=== PATIENT | male | born 1950 | race Caucasian/White ===

== ENCOUNTER 2016-11-14 09:36 | Emergency (ER) | payer MEDICARE ==
--- NOTE | 2016-11-14 11:45 | ED CLINICAL REPORT ---
Clinical Report - Physicians/Mid Levels [facility] [address] [place] [place] [address] 11/14/2016 9:40 Patient: GRACE DE PAZ Time Seen: 0945. Arrived- By private vehicle. Historian- patient. HISTORY OF PRESENT ILLNESS Chief Complaint: Injury to right knee. The injury happened today. Occurred at home. Fell. Patient is experiencing moderate pain. Patient denies injury to the head or neck. No other injury. ("tripped up" by dog. reports falling directly on to right knee. ambulatory after fall.). REVIEW OF SYSTEMS The patient complains of pain on weight bearing. No weakness or skin laceration. All systems otherwise negative, except as recorded above. PAST HISTORY See nurses notes. SOCIAL HISTORY Former smoker. No alcohol use or drug use. No recent travel. Is a local resident. ADDITIONAL NOTES The nursing notes have been reviewed. PHYSICAL EXAM Vital Signs: 11/14/2016 10:10 BP: 146/52. HR: 74. RR: 16. O2 saturation: 97%. Temp: 98.8 F. Pain level now: 6/10. Blood pressure normal. Oxygen saturation normal. Appearance: Alert. Oriented X3. No acute distress. Head: Head atraumatic. Neck: Normal inspection. Neck supple. C-spine non-tender. No vertebral tenderness. CVS: Normal heart rate and rhythm. Heart sounds normal. Pulses normal. Respiratory: No respiratory distress. Breath sounds normal. Chest nontender. Abdomen: No visible injury. Soft and nontender. Bowel sounds normal. Back: Normal inspection. No tenderness. ROM normal. Skin: Skin intact. Skin warm and dry. Normal skin color. Normal skin turgor. Extremities: (right knee is ligamentously stable. no overlying skin changes. no crepitus. no madalyn abnormality. no obvious joint effusion. compartments are soft. neurovasc intact. no pain at the hip with movement of the lower extremity.). Extremities otherwise negative. Neuro, Vascular and Tendons: Vascular status intact. Sensation intact. Motor intact. Tendon function intact. LABS, X-RAYS, AND EKG X-Rays: Right knee negative. PROGRESS AND PROCEDURES Course of Care: THe patient is a pleasant 66 yo male with no pertinent past medical history presenting for fall. Mechanical in nature. no neurovasc compromise on exam. Will evaluate with radiographs. discussed limitations of evaluation here in the ED and when to seek additional help if radiographs do no show any acute findings. work up shows negative right knee. continues to be neurovasc intact. discussed with patient work up in the ed, diagnosis, home care, follow up, and return precautions. all questions answered. Patient expressed understanding of these instructions and was agreeable to them. CLINICAL IMPRESSION 11/14/2016 10:10 BP: 146/52. HR: 74. RR: 16. O2 saturation: 97%. Temp: 98.8 F. Pain level now: 12/18. Hypertensive. Oxygen saturation normal. Essential hypertension. Single contusion to the right knee. INSTRUCTIONS Warnings: GENERAL WARNINGS: Return or contact your physician immediately if your condition worsens or changes unexpectedly, if not improving as expected, or if other problems arise. Specifically return if pain, vomiting, bleeding, breathing difficulty or fever. Your Current Medications: CONTINUE TAKING THE FOLLOWING MEDICATIONS: Aspirin Oral : 81 mg daily. Calcium Citrate Oral : 500mg 2 x daily. Fish Oil Oral : Capsule 1000 mg, 1 capsule 2 x daily. Flaxseed (Linseed) Oral : Capsule 1300 mg, 1 capsule 2x a day. Gabapentin Oral : 100 mg daily. Gemfibrozil Oral : 600 mg 2x a day. Glucosamine Oral : 1500mg 2 x daily. GlyBURIDE Oral : 5 mg daily. Lisinopril Oral : 20 mg daily. MetFORMIN HCl Oral : 500 mg 2x a day. TERAZOSIN HCl Oral : Capsule 5 mg, 1 capsule daily. Prescription Medications: Motrin 600 mg tablets: take 1 tablet orally every 6 hours. Dispense thirty (30). No refill. Substitution is permissible. Follow-up: Return to the emergency department as needed. Follow up with your doctor in one week. Reason for referral: recheck today's concerns. Screening today revealed the patient's blood pressure to be in the normal range. Blood pressure screening was not performed during this visit because the patient has an active diagnosis of hypertension. The patient should follow up with a primary care provider for blood pressure management. Understanding of the discharge instructions verbalized by patient. (Electronically signed by Coleman Doan Dr. 11/16/2016 11:45)
--- NOTE | 2016-11-14 11:45 | ED ORDER SUMMARY ---
..... Patient: GRACE DE PAZ OrderSheet [facility] VisitID: [id number] [address] [place] [address] 66y, M Registration Date/Time: 11/14/2016 ORDER SHEET Weight: 134.7 kg (stated) Allergies: No Known Drug Allergy GENERAL ORDERS: Knee 4V Right Urgent (09:11/14/2016 James Brown) (Ack 9:53 TBergley) (10:33 TBergley) Ice (09:51 11/14/2016 James Brown) (Ack 9:53 TBergley) (9:57 TBergley) Crutches (11:45 11/14/2016 James Brown) (11:56 OHernandez) MEDICATION ORDERS: IV FLUIDS: ORDER SHEET NOTES: [Electronically signed by Coleman Doan Dr. (11:45 11/16/2016)] [Electronically signed by Neville Anthony R.N. (18:11/16/2016)] [Electronically locked/signed by Neville Anthony R.N. (18:11/16/2016)]
--- NOTE | 2016-11-14 11:45 | ED NURSING NOTES ---
Clinical Report - Nurses [facility] [address] [place] [address] 11/14/2016 9:40 [id number] Triage time 09:50 Nov 14 2016. Acuity: LEVEL 3. Chief Complaint: INJURY TO RIGHT KNEE. Alert. SEPSIS SCREEN: Sepsis Screen. Negative (no infection suspected/documented). PAUL COMA SCORE: [place] Coma Scale: 15- eyes open spontaneously (4); best verbal response- oriented x 4 (5); best motor response- obeys commands (6). --10:09 Neville Anthony R.N. 10:10 11/14/16. BP: 146/52. HR: 74. RR: 16. O2 saturation: 97% on room air. Temp: 98.8 F. Pain level now: 12/18. Additional comments: (R) Knee. --10:12 Neville Anthony R.N. Weight: 134.7 kg stated. Height/Length: 72 inches. BMI: 40.3. --09:51 Neville Anthony R.N. Medications Gemfibrozil Oral 600 mg, 2x a day. GlyBURIDE Oral 5 mg, daily. MetFORMIN HCl Oral 500 mg, 2x a day. --09:56 Neville Anthony R.N. Aspirin Oral 81 mg, daily. Fish Oil Oral (Capsule 1000 mg) 1 capsule, 2 x daily. Flaxseed (Linseed) Oral (Capsule 1300 mg) 1 capsule, 2x a day. Gabapentin Oral 100 mg, daily. Lisinopril Oral 20 mg, daily. TERAZOSIN HCl Oral (Capsule 5 mg) 1 capsule, daily. --09:58 Neville Anthony R.N. Calcium Citrate Oral 500mg, 2 x daily. Glucosamine Oral 1500mg, 2 x daily. --09:59 Neville Anthony R.N. Allergies No Known Drug Allergy. --09:54 Neville Anthony R.N. History Arrived by private vehicle. Historian: patient. Accompanied by spouse. [place] ( (R) Knee pain when his dog hit the back of his legs and pt went foward.). This occurred (about 1 1/2 ago). Occurred at a park. Mechanism of injury: sustained a twisting injury and fell. He has had trouble walking. Treatment ACO COORDINATOR: None. PAST MEDICAL HX: Tetanus status: up-to-date. Immunizations: up-to-date. SOCIAL HX: Former smoker, end date 1986. No alcohol use or drug use. No infectious disease exposure. ABUSE ASSESSMENT: No report of abuse. FALL RISK ASSESSMENT: Fall risk assessment completed. No fall risk identified. NUTRITIONAL RISK ASSESSMENT: The nutritional risk assessment revealed no deficiencies. FUNCTIONAL ASSESSMENT: Functional assessment: no impairments noted. LEARNING NEEDS ASSESSMENT: The learning needs assessment revealed no barriers. SKIN INTEGRITY ASSESSMENT: Skin integrity risk assessment completed. No skin integrity risk identified. --10:09 Neville Anthony R.N. PROBLEMS: Coronary Artery Disease. Hypertension. Diabetes Mellitus. --10:07 Neville Anthony R.N. Sleep Apnea. --10:09 Neville Anthony R.N. Occasional PVC's. --10:42 Neville Anthony R.N. ADDITIONAL SURGERIES: Appendectomy. Ear. Elbow. Septoplasty. --10:07 Neville Anthony R.N. Interventions ID band on patient. To treatment room. --10:09 Neville Anthony R.N. PHYSICAL ASSESSMENT Ambulatory to room. GENERAL / NEURO / PSYCH: Oriented X 4. Appears in pain. EXTREMITIES: Limited ROM present in the right knee. Capillary refill is less than 2 seconds in the extremities. Extremity pulses are within normal limits. Neuro-vascular status intact to the extremity. Right knee: tenderness. Limited ROM (diminished flexion and extension). SKIN: Skin intact. Skin is warm and dry. --10:13 Neville Anthony R.N. NURSING PROGRESS NOTES Patient gowned. Reassurance given. Patient identifiers checked. Call light placed in reach. Side rails up x 1. Bed placed in lowest position. Brakes of bed on. Patient ready for evaluation- chart flagged and ED physician notified. --10:13 Neville Anthony R.N. Cold pack applied ((R) Knee). --10:15 Gabrielle, Neville, R.N. <<STRICKEN ENTRY-- 10:33 11/14/16. Patient transported to radiology by stretcher with tech. (10:20 Nov 14 2016). --10:33 Neville Anthony R.N. --END STRIKE>> Correction --10:34 Neville Anthony R.N. 10:20. Patient transported to radiology by stretcher with tech. --10:35 Neville Anthony R.N. 10:33 11/14/16. Patient returned from radiology by stretcher with tech. --10:35 Neville Anthony R.N. 11:54 11/14/16. Patient fit with new crutches. --11:54 Elma Yi 11:54. Crutch training performed by tech; the patient demonstrated proper use (Pt stated crutches felt comfortable. No discomfort was stated.). --15:33 Elma Yi. DISPOSITION / DISCHARGE 11:45 11/14/16. BP: 159/58. HR: 79. RR: 16. O2 saturation: 97% on room air. Temp: 97.9 F (oral). Pain level now: 11/17. --12:06 Neville Anthony R.N. Departure time: 1150. --12:07 Neville Anthony R.N. 11:50. Condition at departure: improved. No learning barriers present. Discharge instructions provided and reviewed with the patient and spouse. Reviewed medication(s) precautions and dosing information (prescription given to spouse). Reviewed referral to family practice for followup. Patient and spouse verbalized understanding. Written instructions provided in [place]. The patient was discharged by the physician. He was discharged home and accompanied by spouse. He left the Emergency Department ambulatory on crutches and via private vehicle. Spouse driving. FALL RISK ASSESSMENT: Fall risk assessment completed. No fall risk identified. --12:14 Neville Anthony R.N. Locked/Released at 11/16/2016 18:24 by Neville Anthony R.N.
--- NOTE | 2016-11-14 11:45 | ED NURSING NOTES ---
Clinical Report - Nurses [facility] [address] [place] [place] [address] 11/14/2016 9:40 [id number] Triage time 09:50 Nov 14 2016. Acuity: LEVEL 3. Chief Complaint: INJURY TO RIGHT KNEE. Alert. SEPSIS SCREEN: Sepsis Screen. Negative (no infection suspected/documented). PAUL COMA SCORE: Geraldine Coma Scale: 15- eyes open spontaneously (4); best verbal response- oriented x 4 (5); best motor response- obeys commands (6). --10:09 Neville Anthony R.N. 10:10 11/14/16. BP: 146/52. HR: 74. RR: 16. O2 saturation: 97% on room air. Temp: 98.8 F. Pain level now: 12/18. Additional comments: (R) Knee. --10:12 Neville Anthony R.N. Weight: 134.7 kg stated. Height/Length: 72 inches. BMI: 40.3. --09:51 Neville Anthony R.N. Medications Gemfibrozil Oral 600 mg, 2x a day. GlyBURIDE Oral 5 mg, daily. MetFORMIN HCl Oral 500 mg, 2x a day. --09:56 Neville Anthony R.N. Aspirin Oral 81 mg, daily. Fish Oil Oral (Capsule 1000 mg) 1 capsule, 2 x daily. Flaxseed (Linseed) Oral (Capsule 1300 mg) 1 capsule, 2x a day. Gabapentin Oral 100 mg, daily. Lisinopril Oral 20 mg, daily. TERAZOSIN HCl Oral (Capsule 5 mg) 1 capsule, daily. --09:58 Neville Anthony R.N. Calcium Citrate Oral 500mg, 2 x daily. Glucosamine Oral 1500mg, 2 x daily. --09:59 Neville Anthony R.N. Allergies No Known Drug Allergy. --09:54 Neville Anthony R.N. History Arrived by private vehicle. Historian: patient. Accompanied by spouse. [place] ( (R) Knee pain when his dog hit the back of his legs and pt went foward.). This occurred (about 1 1/2 ago). Occurred at a park. Mechanism of injury: sustained a twisting injury and fell. He has had trouble walking. Treatment WRAP CHECKER: None. PAST MEDICAL HX: Tetanus status: up-to-date. Immunizations: up-to-date. SOCIAL HX: Former smoker, end date 1986. No alcohol use or drug use. No infectious disease exposure. ABUSE ASSESSMENT: No report of abuse. FALL RISK ASSESSMENT: Fall risk assessment completed. No fall risk identified. NUTRITIONAL RISK ASSESSMENT: The nutritional risk assessment revealed no deficiencies. FUNCTIONAL ASSESSMENT: Functional assessment: no impairments noted. LEARNING NEEDS ASSESSMENT: The learning needs assessment revealed no barriers. SKIN INTEGRITY ASSESSMENT: Skin integrity risk assessment completed. No skin integrity risk identified. --10:09 Neville Anthony R.N. PROBLEMS: Coronary Artery Disease. Hypertension. Diabetes Mellitus. --10:07 Neville Anthony R.N. Sleep Apnea. --10:09 Neville Anthony R.N. Occasional PVC's. --10:42 Neville Anthony R.N. ADDITIONAL SURGERIES: Appendectomy. Ear. Elbow. Septoplasty. --10:07 Neville Anthony R.N. Interventions ID band on patient. To treatment room. --10:09 Neville Anthony R.N. PHYSICAL ASSESSMENT Ambulatory to room. GENERAL / NEURO / PSYCH: Oriented X 4. Appears in pain. EXTREMITIES: Limited ROM present in the right knee. Capillary refill is less than 2 seconds in the extremities. Extremity pulses are within normal limits. Neuro-vascular status intact to the extremity. Right knee: tenderness. Limited ROM (diminished flexion and extension). SKIN: Skin intact. Skin is warm and dry. --10:13 Neville Anthony R.N. NURSING PROGRESS NOTES Patient gowned. Reassurance given. Patient identifiers checked. Call light placed in reach. Side rails up x 1. Bed placed in lowest position. Brakes of bed on. Patient ready for evaluation- chart flagged and ED physician notified. --10:13 Neville Anthony R.N. Cold pack applied ((R) Knee). --10:15 Gabrielle, Neville, R.N. <<STRICKEN ENTRY-- 10:33 11/14/16. Patient transported to radiology by stretcher with tech. (10:20 Nov 14 2016). --10:33 Neville Anthony R.N. --END STRIKE>> Correction --10:34 Neville Anthony R.N. 10:20. Patient transported to radiology by stretcher with tech. --10:35 Neville Anthony R.N. 10:33 11/14/16. Patient returned from radiology by stretcher with tech. --10:35 Neville Anthony R.N. 11:54 11/14/16. Patient fit with new crutches. --11:54 Elma Yi 11:54. Crutch training performed by tech; the patient demonstrated proper use (Pt stated crutches felt comfortable. No discomfort was stated.). --15:33 Elma Yi. DISPOSITION / DISCHARGE 11:45 11/14/16. BP: 159/58. HR: 79. RR: 16. O2 saturation: 97% on room air. Temp: 97.9 F (oral). Pain level now: 11/17. --12:06 Neville Anthony R.N. Departure time: 1150. --12:07 Neville Anthony R.N. 11:50. Condition at departure: improved. No learning barriers present. Discharge instructions provided and reviewed with the patient and spouse. Reviewed medication(s) precautions and dosing information (prescription given to spouse). Reviewed referral to family practice for followup. Patient and spouse verbalized understanding. Written instructions provided in [place]ian. The patient was discharged by the physician. He was discharged home and accompanied by spouse. He left the Emergency Department ambulatory on crutches and via private vehicle. Spouse driving. FALL RISK ASSESSMENT: Fall risk assessment completed. No fall risk identified. --12:14 Neville Anthony R.N. Locked/Released at 11/16/2016 18:24 by Neville Anthony R.N.
--- NOTE | 2016-11-14 11:45 | ED ORDER SUMMARY ---
..... Patient: GRACE DE PAZ OrderSheet [facility] VisitID: [id number] [address] [place] [address] 66y, M Registration Date/Time: 11/14/2016 ORDER SHEET Weight: 134.7 kg (stated) Allergies: No Known Drug Allergy GENERAL ORDERS: Knee 4V Right Urgent (09:11/14/2016 James Brown) (Ack 9:53 TBergley) (10:33 TBergley) Ice (09:51 11/14/2016 James Brown) (Ack 9:53 TBergley) (9:57 TBergley) Crutches (11:45 11/14/2016 James Brown) (11:56 OHernandez) MEDICATION ORDERS: IV FLUIDS: ORDER SHEET NOTES: [Electronically signed by Coleman Doan Dr. (11:45 11/16/2016)] [Electronically signed by Neville Anthony R.N. (18:11/16/2016)] [Electronically locked/signed by Neville Anthony R.N. (18:11/16/2016)]
--- NOTE | 2016-11-14 12:00 | DIAGNOSTIC IMAGING REPORT ---
PROCEDURE: XR KNEE 4 VIEWS - RIGHT INDICATION: TRAUMA/INJURY TECHNIQUE: Four views of the right knee. COMPARISON: None. FINDINGS: Patchy, mild demineralization. No acute fractures. Normal bony alignment. Enthesopathic change at the distal quadriceps and patellar tendon insertion sites. No joint effusion or intra-articular calcifications. Heavy calcific atherosclerosis. IMPRESSION: 1. Intact right knee. 2. Enthesopathy at the distal quadriceps and patellar tendon insertions. 3. Heavy atherosclerosis.
--- NOTE | 2016-11-16 18:24 | ED MAR SUMMARY ---
..... Medication Administration Record [facility] [address] [place] [address] Patient: GRACE DE PAZ Visit ID: [id number] 66y, M Weight: 134.7 kg Height/Length: 72 in BMI: 40.3 ALLERGIES: No Known Drug Allergy
--- NOTE | 2016-11-16 18:24 | ED MED RECONCILIATION SUMMARY ---
Patient: GRACE DE PAZ Medication Reconciliation Report [facility] VisitID: [id number] [address] [place] [address] 66y, M Registration Date/Time: 11/14/2016 Weight: 134.7 kg Height/Length: 72 in. BMI: 40.3 ALLERGIES: No Known Drug Allergy The patient's Home Medications are listed below: CONTINUE TAKING THE FOLLOWING MEDICATIONS: Aspirin Oral 81 mg, daily Calcium Citrate Oral 500mg, 2 x daily Fish Oil Oral (1000 mg) 1 capsule, 2 x daily Flaxseed (Linseed) Oral (1300 mg) 1 capsule, 2x a day Gabapentin Oral 100 mg, daily Gemfibrozil Oral 600 mg, 2x a day Glucosamine Oral 1500mg, 2 x daily GlyBURIDE Oral 5 mg, daily Lisinopril Oral 20 mg, daily MetFORMIN HCl Oral 500 mg, 2x a day TERAZOSIN HCl Oral (5 mg) 1 capsule, daily The source(s) of the original Home Medication information: Not obtained. The following Medications were given to the patient in the Emergency Department: None. The following Medications were prescribed to the patient: Motrin 600 mg tablets: take 1 tablet orally every 6 hours. Dispense thirty (30). No refill. Substitution is permissible. -- Coleman Doan Dr.
--- NOTE | 2016-11-16 18:24 | ED DISCHARGE INSTRUCTIONS ---
Patient: GRACE DE PAZ General Instructions [facility] VisitID: [id number] [place] [address] 66y, M Registration Date/Time: 11/14/2016 11/14/2016 10:10 BP: 146/52. HR: 74. RR: 16. O2 saturation: 97%. Temp: 98.8 F. Pain level now: 6/10. Hypertensive. Oxygen saturation normal. Essential hypertension. Single contusion to the right knee. INSTRUCTIONS Warnings: GENERAL WARNINGS: Return or contact your physician immediately if your condition worsens or changes unexpectedly, if not improving as expected, or if other problems arise. Specifically return if pain, vomiting, bleeding, breathing difficulty or fever. Your Current Medications: CONTINUE TAKING THE FOLLOWING MEDICATIONS: Aspirin Oral : 81 mg daily. Calcium Citrate Oral : 500mg 2 x daily. Fish Oil Oral : Capsule 1000 mg, 1 capsule 2 x daily. Flaxseed (Linseed) Oral : Capsule 1300 mg, 1 capsule 2x a day. Gabapentin Oral : 100 mg daily. Gemfibrozil Oral : 600 mg 2x a day. Glucosamine Oral : 1500mg 2 x daily. GlyBURIDE Oral : 5 mg daily. Lisinopril Oral : 20 mg daily. MetFORMIN HCl Oral : 500 mg 2x a day. TERAZOSIN HCl Oral : Capsule 5 mg, 1 capsule daily. Prescription Medications: Motrin 600 mg tablets: take 1 tablet orally every 6 hours. Dispense thirty (30). No refill. Substitution is permissible. Follow-up: Return to the emergency department as needed. Follow up with your doctor in one week. Reason for referral: recheck today's concerns. Screening today revealed the patient's blood pressure to be in the normal range. Blood pressure screening was not performed during this visit because the patient has an active diagnosis of hypertension. The patient should follow up with a primary care provider for blood pressure management. Understanding of the discharge instructions verbalized by patient. ADDITIONAL INFORMATION Contusion:Lower Extremity You have a CONTUSION of your LOWER extremity (leg, knee, ankle, foot, or toes). This causes local pain, swelling and sometimes bruising. There are no broken bones. This injury may take from a few days to a few weeks to heal. Home Care: 1) Keep your leg elevated to reduce pain and swelling. When sleeping, place a pillow under the injured leg. When sitting, support the injured leg so it is level with your waist. This is very important during the first 48 hours. 2) If CRUTCHES have been advised, do not bear full weight on the injured leg until you can do so without pain. You may return to sports when you are able to hop and run on the injured leg without pain. 3) Apply an ice pack (ice cubes in a plastic bag, wrapped in a towel) over the injured area for 20 minutes every 1-2 hours the first day for pain relief. Continue this 3-4 times a day until the pain and swelling goes away. 4) You may use acetaminophen (Tylenol) or ibuprofen (Motrin, Advil) to control pain, unless another pain medicine was prescribed. [ NOTE : If you have chronic liver or kidney disease or ever had a stomach ulcer or GI bleeding, talk with your doctor before using these medicines.] Follow Up with your doctor or this facility if you are not starting to improve within the next THREE days. [NOTE: If X-rays were taken, they will be reviewed by a radiologist. You will be notified of any new findings that may affect your care.] Get Prompt Medical Attention if any of the following occur: -- Pain or swelling increases -- Toes become cold, blue, numb or tingly -- Redness, warmth or drainage from the skin High Blood Pressure --Established High Blood Pressure (Hypertension) is a chronic disease. The cause is unknown in most cases. It can usually be controlled with lifestyle changes and/or medicines. Symptoms of high blood pressure may include headache, dizziness, visual changes, chest pain and shortness of breath. Sometimes it causes no symptoms at all. However, even if there are no symptoms, untreated high blood pressure increases the risk of heart attack, also known as acute myocardial infarction, or AMI, and stroke. It is a serious health risk and should not be ignored. A normal blood pressure is 120/80 or less. The first (top) number is the "systolic" pressure. The second (bottom) number is the "diastolic" pressure. Hypertension exists when either the top number is 140 or higher, OR the bottom number is 90 or higher on repeated measurements. Home Care: All patients with high blood pressure should do the following to lower their pressure. If you are on medicines, then these methods may reduce or eliminate your need for medicines in the future. Begin a weight loss program if you are overweight. Reduce your salt intake. Avoid high salt foods (olives, pickles, smoked meats, salted potato chips, etc.). Do not add salt to your food at the table. Use only small amounts of salt when cooking. Begin an exercise program. Discuss with your doctor what type of exercise program would be best for you. It doesn't have to be difficult. Even brisk walking for 20 minutes three times a week is a good form of exercise. Avoid medicines which contain heart stimulants. This includes many cold and sinus decongestant pills and sprays as well as diet pills. Check the warnings about hypertension on the label. Stimulants such as amphetamine or cocaine could be lethal for someone with hypertension. Never take these. Limit your caffeine intake or switch to caffeine-free products. Stop smoking. If you are a long-time smoker, this can be hard. Enroll in a stop-smoking program to improve your chance of success. Learning how to handle stress better is an important part of any program to lower blood pressure. Learn about relaxation methods such as meditation, yoga or biofeedback. If medicines were prescribed, take them exactly as directed. Missing doses may cause your blood pressure get out of control. Consider buying an automatic blood pressure machine (available at most pharmacies). Use this to monitor your blood pressure at home and report the results to your doctor. Follow Up: Regular visits to your own physician for blood pressure checks and medicine adjustment is an important part of your care. Make a follow-up appointment as directed by our staff. Get Prompt Medical Attention if any of the following occur: Chest pain or shortness of breath Severe headache Throbbing or rushing sound in the ears Nosebleed Sudden severe abdominal pain Extreme drowsiness, confusion or fainting Dizziness or vertigo (dizziness with spinning sensation) Weakness of an arm or leg or one side of the face Difficulty with speech or vision Ibuprofen Oral tablet What is this medicine? IBUPROFEN (eye BYOO proe fen) is a non-steroidal anti-inflammatory drug (NSAID). It is used for dental pain, fever, headaches or migraines, osteoarthritis, rheumatoid arthritis, or painful monthly periods. It can also relieve minor aches and pains caused by a cold, flu, or sore throat. How should I use this medicine? Take this medicine by mouth with a glass of water. Follow the directions on the prescription label. Take this medicine with food if your stomach gets upset. Try to not lie down for at least 10 minutes after you take the medicine. Take your medicine at regular intervals. Do not take your medicine more often than directed. A special MedGuide will be given to you by the pharmacist with each prescription and refill. Be sure to read this information carefully each time. Talk to your multiple slide operator regarding the use of this medicine in children. Special care may be needed. What side effects may I notice from receiving this medicine? Side effects that you should report to your doctor or health acute care certified nursing assistant as soon as possible: allergic reactions like skin rash, itching or hives, swelling of the face, lips, or tongue black or bloody stools, blood in the urine or in vomit breathing problems changes in vision chest pain general ill feeling or flu-like symptoms nausea or vomiting redness, blistering, peeling or loosening of the skin, including inside the mouth slurred speech or weakness on one side of the body stomach pain unexplained weight gain or swelling unusually weak or tired yellowing of eyes or skin Side effects that usually do not require medical attention (report to your doctor or health acute care certified nursing assistant if they continue or are bothersome): constipation or diarrhea dizziness gas or heartburn stomach upset What may interact with this medicine? Do not take this medicine with any of the following medications: cidofovir ketorolac methotrexate pemetrexed This medicine may also interact with the following medications: alcohol aspirin diuretics lithium other drugs for inflammation like prednisone warfarin What if I miss a dose? If you miss a dose, take it as soon as you can. If it is almost time for your next dose, take only that dose. Do not take double or extra doses. Where should I keep my medicine? Keep out of the reach of children. Store at room temperature between 15 and 30 degrees C (59 and 86 degrees F). Keep container tightly closed. Throw away any unused medicine after the expiration date. What should I tell my health care provider before I take this medicine? They need to know if you have any of these conditions: asthma cigarette smoker drink more than 3 alcohol containing drinks a day heart disease or circulation problems such as heart failure or leg edema (fluid retention) high blood pressure kidney disease liver disease stomach bleeding or ulcers an unusual or allergic reaction to ibuprofen, aspirin, other NSAIDS, other medicines, foods, dyes, or preservatives or trying to get breast-feeding What should I watch for while using this medicine? Tell your doctor or healthcare professional if your symptoms do not start to get better or if they get worse. This medicine does not prevent heart attack or stroke. In fact, this medicine may increase the chance of a heart attack or stroke. The chance may increase with longer use of this medicine and in people who have heart disease. If you take aspirin to prevent heart attack or stroke, talk with your doctor or health acute care certified nursing assistant. Do not take other medicines that contain aspirin, ibuprofen, or naproxen with this medicine. Side effects such as stomach upset, nausea, or ulcers may be more likely to occur. Many medicines available without a prescription should not be taken with this medicine. This medicine can cause ulcers and bleeding in the stomach and intestines at any time during treatment. Ulcers and bleeding can happen without warning symptoms and can cause . To reduce your risk, do not smoke cigarettes or drink alcohol while you are taking this medicine. You may get drowsy or dizzy. Do not drive, use machinery, or do anything that needs mental alertness until you know how this medicine affects you. Do not stand or sit up quickly, especially if you are an older patient. This reduces the risk of dizzy or fainting spells. This medicine can cause you to bleed more easily. Try to avoid damage to your teeth and gums when you brush or floss your teeth. You have been given the following additional information: Contusion, Lower Extremity Hypertension, Established Ibuprofen Oral tablet (Electronically signed by Coleman Doan Dr. 11/16/2016 11:45)
--- NOTE | 2016-11-16 18:24 | ED MED RECONCILIATION SUMMARY ---
Patient: GRACE DE PAZ Medication Reconciliation Report [facility] VisitID: [id number] [address] [place] [address] 66y, M Registration Date/Time: 11/14/2016 Weight: 134.7 kg Height/Length: 72 in. BMI: 40.3 ALLERGIES: No Known Drug Allergy The patient's Home Medications are listed below: CONTINUE TAKING THE FOLLOWING MEDICATIONS: Aspirin Oral 81 mg, daily Calcium Citrate Oral 500mg, 2 x daily Fish Oil Oral (1000 mg) 1 capsule, 2 x daily Flaxseed (Linseed) Oral (1300 mg) 1 capsule, 2x a day Gabapentin Oral 100 mg, daily Gemfibrozil Oral 600 mg, 2x a day Glucosamine Oral 1500mg, 2 x daily GlyBURIDE Oral 5 mg, daily Lisinopril Oral 20 mg, daily MetFORMIN HCl Oral 500 mg, 2x a day TERAZOSIN HCl Oral (5 mg) 1 capsule, daily The source(s) of the original Home Medication information: Not obtained. The following Medications were given to the patient in the Emergency Department: None. The following Medications were prescribed to the patient: Motrin 600 mg tablets: take 1 tablet orally every 6 hours. Dispense thirty (30). No refill. Substitution is permissible. -- Coleman Doan Dr.
--- NOTE | 2016-11-16 18:24 | ED MAR SUMMARY ---
..... Medication Administration Record [facility] [address] [place] [address] Patient: GRACE DE PAZ Visit ID: [id number] 66y, M Weight: 134.7 kg Height/Length: 72 in BMI: 40.3 ALLERGIES: No Known Drug Allergy
== END 2016-11-14 11:50 | disposition home or self-care (01) ==
LOC: ED SRH 09:36
DX: S80.01XA Contusion of right knee, initial encounter (principal); Z79.84 Long term (current) use of oral hypoglycemic drugs; W01.0XXA Fall on same level from slipping, tripping and stumbling without subsequent striking against object, initial encounter; Y93.9 Activity, unspecified; Y92.009 Unspecified place in unspecified non-institutional (private) residence as the place of occurrence of the external cause; Y99.9 Unspecified external cause status; I10 Essential (primary) hypertension; I25.10 Atherosclerotic heart disease of native coronary artery without angina pectoris; E11.9 Type 2 diabetes mellitus without complications; Z79.82 Long term (current) use of aspirin